=== PATIENT | male | born 1975 | race Two or more races ===

== ENCOUNTER 2017-06-21 21:16 | Emergency (ER) | payer OTHER ==
[~2017-06-21] VITALS: Ht 172.7 cm; Wt 127.0 kg
[2017-06-22 00:28] VITALS: BP 138/90
[2017-06-22] MEDS ORDERED: diphenhdrAMINE HCL 25 MG CAP PO ONE (00:45)
[2017-06-22] MEDS ORDERED: methylPREDNISolone SOD SUCC 125 MG/2 ML VL IM ONE (00:45)
== END 2017-06-22 02:38 | disposition home or self-care (01) ==
LOC: ER 21:16
DX: T78.40XA Allergy, unspecified, initial encounter (principal); L29.9 Pruritus, unspecified; R05 Cough; X58.XXXA Exposure to other specified factors, initial encounter
CPT/HCPCS: 96372; 99283; J2930

== ENCOUNTER 2017-07-25 22:44 | Emergency (ER) | payer MEDICAID, OTHER ==
[~2017-07-25] VITALS: Ht 172.7 cm; Wt 124.3 kg
[2017-07-25 23:05] VITALS: BP 128/94
[2017-07-26] MEDS ORDERED: methylPREDNISolone SOD SUCC 125 MG/2 ML VL IM ONE (04:00)
[2017-07-26] MEDS ORDERED: diphenhdrAMINE HCL 50 MG/1 ML VL IM ONE (04:00)
== END 2017-07-26 04:47 | disposition home or self-care (01) ==
LOC: ER 22:46
DX: T78.40XA Allergy, unspecified, initial encounter (principal)
CPT/HCPCS: 96372; 99284; J1200; J2930